=== PATIENT | female | born 2000 | race Caucasian/White ===

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

== ENCOUNTER 2020-03-22 17:50 | Inpatient (IN) | payer OTHER ==
[2020-03-22] VITALS (10 sets, daily range): BP systolic 123–156; BP diastolic 69–101
[~2020-03-22] VITALS: Ht 152.4 cm; Wt 70.3 kg
[~2020-03-22 17:50] MED LIST: PREN1CHW6 PO
--- OUTSIDE RECORDS SUMMARY | 2020-03-22 18:51 | CCD ---
Author Author [facility] [place] [facility] Address Unknown Phone Unavailable Support Name Relationship Address Phone [facility] Next Of Kin [address] [place] [address] Unavailable UE Next Of Kin Unknown Unavailable Re-disclosure Warning The records that you are about to access may contain information from federally-assisted alcohol or drug abuse programs. If such information is present, then the following federally mandated warning applies: This information has been disclosed to you from records protected by federal confidentiality rules (42 CFR part 2). The federal rules prohibit you from making any further disclosure of this information unless further disclosure is expressly permitted by the written consent of the person to whom it pertains or as otherwise permitted by 42 CFR part 2. A general authorization for the release of medical or other information is NOT sufficient for this purpose. The Federal rules restrict any use of the information to criminally investigate or prosecute any alcohol or drug abuse patient.The records that you are about to access may contain highly sensitive health information, the redisclosure of which is protected by Article 27-F of the [facility] Public Health law. If you continue you may have access to information: Regarding HIV / AIDS; Provided by facilities licensed or operated by the [facility] Office of Mental Health; or Provided by the [facility] Office for People With Developmental Disabilities. If such information is present, then the following [facility] mandated warning applies: This information has been disclosed to you from confidential records which are protected by state law. State law prohibits you from making any further disclosure of this information without the specific written consent of the person to whom it pertains, or as otherwise permitted by law. Any unauthorized further disclosure in violation of state law may result in a fine or senior care sentence or both. A general authorization for the release of medical or other information is NOT sufficient authorization for further disc losure. Insurance Providers Payer name Policy type / Coverage type Policy ID Covered alliance party ID Covered alliance party's relationship to tam Policy Tam Plan Information [facility] [employer] [id number] SELF PAY ONLY [id number] SP [id number] Results ID Date Data Source [id number] 12/21/2019 12:00:00 AM EST [facility] Name Value Range Interpretation Code Description Data Kiya rce(s) Supporting Document(s) 2019-nCoV RNA XXX QUINN+probe-Imp [facility] This lab was ordered by [facility] and reported by [employer] Procedure
[2020-03-22] MEDS ORDERED: LACTATED RINGER'S 1000 ML IV STA (18:53)
[2020-03-22] MEDS ORDERED: LR 1,000 ML IV SCH (18:53)
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
[2020-03-22 20:03] LABS: HEMATOCRIT 34.4 % (36.0-47.0); HEMOGLOBIN 10.6 g/dl (12.0-15.5); MEAN CORPUSCULAR HEMOGLOBIN 24.6 pg (27.0-33.0); MEAN CORPUSCULAR HGB CONC 30.8 g/dl (32.0-36.5); MEAN CORPUSCULAR VOLUME 79.8 fl (80.0-96.0); PLATELET COUNT, AUTOMATED 173 10^3/uL (150-450); RED BLOOD COUNT 4.31 10^6/uL (4.00-5.40); WHITE BLOOD COUNT 12.6 10^3/uL (4.0-10.0)
[2020-03-22] MEDS ORDERED: OXYTOCIN 30 UNITS IN 0.9% NaCl 500ML IV BAG (J2590) As Ordered ONE (20:41)
[2020-03-22] MEDS ORDERED: LIDOCAINE 1% MDV 20ML VIAL As Ordered ONE (21:08)
[2020-03-22] MEDS ORDERED: OXYTOCIN DRIP 30 UNITS in IV 1 EA IV SCH (21:50)
[2020-03-22] MEDS ORDERED: MEASLES,MUMPS,RUBELLA VACCINE INJ (MMR-II) (90707) SC SCH (22:00)
[2020-03-22] MEDS ORDERED: RHOGAM 300 MCG (1500 IU) INJ (J2790) IM SCH (22:00)
[2020-03-22] MEDS ORDERED: LIDOCAINE 1% MDV 20ML VIAL INFIL ONE (22:00)
[2020-03-22] MEDS ORDERED: METHYLERGONOVINE MALEATE 0.2 MG TAB PO PRN (22:00)
[2020-03-22] MEDS ORDERED: DOCUSATE SODIUM 100MG CAPSULE PO PRN (22:00)
[2020-03-22] MEDS ORDERED: BENZOCAINE 20% HEMORRHOIDAL OINTMENT 28GM TUBE TOP PRN (22:00)
--- NOTE | 2020-03-22 22:11 | DNPDOC ---
[facility] Delivery Note Delivery Note DATE OF DELIVERY: 22Mar2020 PREDELIVERY DIAGNOSIS: 39-1/7 weeks' gestation and labor. POST DELIVERY DIAGNOSIS: Delivered. PROCEDURE: Precipitous Spontaneous vaginal delivery LOCKSTITCH FRONT EDGE TAPE SEWER: Suzan Galan CNM ANESTHESIA: None. ESTIMATED BLOOD LOSS: 150 mL. FINDINGS: 3 pound 4 ounce male Zoran, Score 8/9, no nuchal cord, left leg cord x1. DELIVERY SUMMARY: Patient is a 19-year-old 1 now para 0 who was admitted to labor and delivery for active labor on 22Mar2020. Pt progressed rapidly to C/C/+2 with and uncontrollable urge to push. head delivered in OA with Restitution to FROYLAN. Left anterior shoulder delivered easily followed by the posterior shoulder and corpus with terminal meconium noted at delivery. The vigorous male infant was placed immediately on the maternal abdomen where he was dried and stimulated. The cord was clamped x2 after pulsation ceased and cut by the FOB. Pitocin infusion was initiated per protocol. Cord blood was collected and sent for testing. The placenta delivered spontaneously intact in Fisher presentation with minimal bleeding and trailing membranes. The cervix was swept for a small clot and a portion of membranes. Examination revealed an intact perineum and a left labial laceration. Local lidocaine was placed for analgesia and the laceration was approximated with 4-0 vicryl on sh with a running stitch. Mother and baby entered the recovery phase in stable condition. SUZAN GALAN CNM Mar 22, 2020 22:11
[2020-03-22] MEDS: IBUPROFEN 800 MG TAB PO PRN (22:50)
[2020-03-23] MEDS: ACETAMINOPHEN TAB 650MG DOSE (2X325MG) PO PRN ×2 (01:22→08:44)
[2020-03-23 06:00] VITALS: BP 105/58
[2020-03-23] MEDS: PRENATAL VITAMINS CHEWABLE TABLET PO SCH (08:45)
--- NOTE | 2020-03-23 09:51 | IPNPDOC ---
Progress Note Date of Service: Mar 23, 2020 Day#: 1 Progress Note SUBJECT: Alma is a 19-year-old 1 now Para 1 status post uncomplicated spontaneous vaginal delivery at 39-1/7 weeks' at approximately on 22Mar2020 of a Male 7 pounds 4 ounces with eft labial laceration and repair, doing well day # 1. She has been ambulating, voiding spontaneously without issue and tolerating regular diet. Breast feeding without issue. Reports lochia is small. Patient is ambulating well. Reports some cramping with . Denies any pain. Voiding without difficulty. OBJECTIVE: VITAL SIGNS: Within normal limits, afebrile. Alert and oriented times three. Breath sounds clear to auscultation. Heart rate: Regular rate and rhythm, no murmurs, rubs or gallops. Abdomen: Fundus firm at U. Soft, NTTP. Small lochia. ASSESSMENT:Alma is a 19-year-old 1 now Para 1 status post uncomplicated precipitous spontaneous vaginal delivery after presenting in active labor , delivered at 39-1/7 weeks', doing well on day 1. Vitals within normal limits, afebrile, hemodynamically stable with no evidence of infection. PLAN: 1. Discharge to home day 2 pp. 2. Tylenol and Motrin for pain. 3. Encourage breast feeding and ambulation. 4. provide supportive pp care and education VS, I&O, 24H, Fishbone Vital Signs/I&O Vital Signs Date Time Temp Pulse Resp B/P (MAP) Pulse Ox O2 Delivery O2 Flow Rate FiO2 03/23/20 06:00 97.1 63 16 105/58 (74) 03/22/20 19:10 98 Room Air I&O- Last 24 Hours up to 6 AM 03/23/20 06:00 Intake Total 1652 ml Output Total 550 ml Balance 1102 ml Laboratory Data 24H LABS Laboratory Tests 2 03/22/20 18:50: Serology Scanned Report Hepatitis B Testing 03/22/20 19:52: Nucleated Red Blood Cells % (auto) 0.0, Random Glucose 93 03/22/20 19:55: Bedside Glucose (Misc Panel) 90 CBC/BMP Laboratory Tests 03/22/20 19:52 BENJAMIN GALAN CNM Mar 23, 2020 09:51
[2020-03-23] MEDS ORDERED: CEPACOL LOZENGE PO PRN (10:00)
[2020-03-23] MEDS ORDERED: SODIUM CHLORIDE NASAL 0.65% SPRAY BTL (OCEAN) PRN (10:00)
[2020-03-23 17:55] VITALS: BP 128/68
[2020-03-23] MEDS: IBUPROFEN 800 MG TAB PO PRN (19:37)
[2020-03-24 06:00] VITALS: BP 132/75
--- NOTE | 2020-03-24 06:28 | IPNPDOC ---
Progress Note Date of Service: Mar 24, 2020 Day#: 2 Progress Note Alma is a 19-year-old 1 now Para 1 status post uncomplicated spontan eous vaginal delivery at 39-1/7 weeks' at approximately on 22Mar2020 of a Male 7 pounds 4 ounces with eft labial laceration and repair, doing well day # 2. She has been ambulating, voiding spontaneously without issue and tolerating regular diet. Breast feeding without issue. Reports lochia is small. Denies any pain. Voiding without difficulty. OBJECTIVE: VITAL SIGNS: Within normal limits, afebrile. Alert and oriented times three. Normal work of breathing Heart rate: Regular rate and rhythm Abdomen: Fundus firm at U. Soft, NTTP. Small lochia. ASSESSMENT:Alma is a 19-year-old 1 now Para 1 status post uncomplicated precipitous spontaneous vaginal delivery after presenting in active labor , delivered at 39-1/7 weeks', doing well on day 2. Vitals within normal limits, afebrile, hemodynamically stable with no evidence of infection. PLAN: 1. Discharge to home today. 2. Tylenol and Motrin for pain. 3. Encourage breast feeding and ambulation. 4. using minipill for contraception 4. provide supportive pp care and education . VS, I&O, 24H, Fishbone Vital Signs/I&O Vital Signs Date Time Temp Pulse Resp B/P (MAP) Pulse Ox O2 Delivery O2 Flow Rate FiO2 03/23/20 17:55 98.2 70 18 128/68 (88) 03/22/20 19:10 98 Room Air I&O- Last 24 Hours up to 6 AM 03/24/20 06:00 Intake Total 240 ml Balance 240 ml RUDDY HOLM MD Mar 24, 2020 05:50
[2020-03-24] MEDS ORDERED: IBUP80TA PO (06:30)
[2020-03-24] MEDS ORDERED: DOK1CAP7 PO (06:30)
[2020-03-24] MEDS: PRENATAL VITAMINS CHEWABLE TABLET PO SCH (08:55)
[2020-03-24] MEDS: ACETAMINOPHEN TAB 650MG DOSE (2X325MG) PO PRN (19:25)
== END 2020-03-24 21:00 | disposition home or self-care (01) | DRG 807 ==
LOC: M LDO 17:50 → M LDI 18:48 → M OBS 23:25
PROVIDERS: ADMIT Registered Nurse; ATTEND Registered Nurse
PROC: 10E0XZZ Delivery of Products of Conception, External Approach (ICD-10-PCS; principal; 2020-03-22)
PROC: 0HQ9XZZ Repair Perineum Skin, External Approach (ICD-10-PCS; 2020-03-22)
DX: O24.420 Gestational diabetes mellitus in childbirth, diet controlled (principal); Z37.0 Single live birth; O73.1 Retained portions of placenta and membranes, without hemorrhage; Z3A.39 39 weeks gestation of pregnancy; Z86.16 Personal history of COVID-19; O62.3 Precipitate labor; O70.0 First degree perineal laceration during delivery

== ENCOUNTER 2020-06-01 17:21 | Emergency (ER) | payer OTHER ==
[~2020-06-01] VITALS: Ht 152.4 cm; Wt 61.9 kg
[~2020-06-01 17:21] MED LIST changes: +DOK1CAP7 PO; +IBUP80TA PO
[2020-06-01 17:22] VITALS: BP 123/79
[2020-06-01] MEDS ORDERED: [UNRECOGNIZED DRUG - OTHER] PO (17:39)
[2020-06-01] MEDS ORDERED: INDOMETHACIN 25 MG CAP PO ONE (18:05)
[2020-06-01] MEDS ORDERED: INDO-16 PO (18:11)
[2020-06-01 18:28] LABS: HEMATOCRIT 39.4 % (36.0-47.0); HEMOGLOBIN 12.2 g/dl (12.0-15.5); MEAN CORPUSCULAR HEMOGLOBIN 25.6 pg (27.0-33.0); MEAN CORPUSCULAR VOLUME 82.6 fl (80.0-96.0); PLATELET COUNT, AUTOMATED 279 10^3/uL (150-450); RED BLOOD COUNT 4.77 10^6/uL (4.00-5.40); WHITE BLOOD COUNT 8.6 10^3/uL (4.0-10.0)
[2020-06-01 18:46] LABS: BLOOD UREA NITROGEN 13 MG/DL (7-18); CALCIUM LEVEL 9.5 MG/DL (8.5-10.1); CARBON DIOXIDE LEVEL 30 MEQ/L (21-32); CHLORIDE LEVEL 107 MEQ/L (98-107); CREATININE FOR GFR 0.73 MG/DL (0.55-1.30); GLUCOSE, FASTING 104 MG/DL (70-100); SODIUM LEVEL 141 MEQ/L (136-145); URIC ACID 4.3 MG/DL (2.6-6.0)
== END 2020-06-01 18:38 | disposition home or self-care (01) ==
LOC: M ED 17:21
DX: M79.672 Pain in left foot (principal)